=== PATIENT | female | born 1990 | race Caucasian/White ===

== ENCOUNTER 2018-02-07 11:29 | Inpatient (IN) | payer OTHER ==
[~2018-02-07] VITALS: Ht 167.6 cm; Wt 93.0 kg
[2018-02-07] MEDS ORDERED: OXYTOCIN 30U/ 0.9% NaCL 500ML 500 ML IV ONE (11:50)
[2018-02-07] MEDS: LACTATED RINGERS 1,000 ML IV SCH ×2 (11:50→21:28)
[2018-02-07] MEDS ORDERED: OXYTOCIN 30U/ 0.9% NaCL 500ML 0 ML ONE (11:55)
[2018-02-07] MEDS ORDERED: NEWBORN KIT ONE (11:55)
[2018-02-07] MEDS ORDERED: MISOPROSTOL 200 MCG TABLET ONE (11:55)
[2018-02-07] MEDS ORDERED: CALCIUM CARBONATE 500 MG TAB.CHEW PO PRN (12:00)
[2018-02-07] MEDS ORDERED: ONDANSETRON 2MG/ML, 2ML IVPush PRN (12:00)
[2018-02-07] MEDS ORDERED: FENTANYL PF 100 MCG/2ML IVPush PRN (12:00)
[2018-02-07] MEDS ORDERED: FENTANYL PF 100 MCG/2ML IV PRN (12:00)
[2018-02-07] MEDS ORDERED: SODIUM CHLORIDE FLUSH 10ML SYR IVF PRN (12:00)
[2018-02-07 12:20] LABS: BASOPHILS # (AUTO) 0.02 x10^3/uL (0-0.1); BASOPHILS % (AUTO) 0 % (0-1); EOSINOPHILS % (AUTO) 0 % (1-7); LYMPHOCYTES # (AUTO) 1.24 x10^3/uL (1-3.4); LYMPHOCYTES % (AUTO) 10 % (22-44); MD NO; MEAN CORPUSCULAR HEMOGLOBIN 31.3 pg (27.0-34.8); MEAN CORPUSCULAR HGB CONC 33.8 g/dL (32.4-35.8); MEAN CORPUSCULAR VOLUME 92.7 fL (80-100); MEAN PLATELET VOLUME 9.7 fL (7.4-10.4); MONOCYTES % (AUTO) 3 % (2-9); NEUTROPHILS # (AUTO) 10.87 x10^3/uL (1.8-6.8); NEUTROPHILS % (AUTO) 87 % (42-75); PLATELET COUNT 231 x10^3/uL (130-400); RED BLOOD COUNT 4.43 x10^6/uL (3.82-5.3); RED CELL DISTRIBUTION WIDTH 12.9 % (9.6-15.2)
[2018-02-07] MEDS: D5%-LACTATED RINGERS 1,000 ML IV SCH ×2 (12:30→22:00)
[2018-02-07] MEDS ORDERED: ONDANSETRON 2MG/ML, 2ML IV PRN (17:30)
[2018-02-07] MEDS ORDERED: MISOPROSTOL 200 MCG TABLET PR PRN (17:30)
[2018-02-07] MEDS ORDERED: OXYcodone/APAP 5/325MG TABLET PO PRN ×2 (17:30)
[2018-02-07] MEDS ORDERED: LIDOCAINE-MPF 1%, 5ML ONE (19:03)
[2018-02-07] MEDS ORDERED: IBUPROFEN 600 MG TABLET ONE (19:45)
[2018-02-07] MEDS: IBUPROFEN 600 MG TABLET PO PRN (20:00)
[2018-02-07] MEDS ORDERED: OXYTOCIN 30U/ 0.9% NaCL 500ML 500 ML ONE (21:21)
[2018-02-07] MEDS: OXYTOCIN 30U/ 0.9% NaCL 500ML 500 ML IV SCH (22:00)
[2018-02-07 22:10] VITALS: BP 133/85
[2018-02-08 02:15] VITALS: BP 132/89
[2018-02-08] MEDS: IBUPROFEN 600 MG TABLET PO PRN ×3 (02:26→19:11)
[2018-02-08] MEDS: OXYTOCIN 30U/ 0.9% NaCL 500ML 500 ML IV SCH ×2 (03:19→13:19)
[2018-02-08 03:36] LABS: MEAN CORPUSCULAR HEMOGLOBIN 30.6 pg (27.0-34.8); MEAN CORPUSCULAR HGB CONC 33.6 g/dL (32.4-35.8); MEAN CORPUSCULAR VOLUME 91.1 fL (80-100); MEAN PLATELET VOLUME 9.6 fL (7.4-10.4); PLATELET COUNT 233 x10^3/uL (130-400); RED CELL DISTRIBUTION WIDTH 13.2 % (9.6-15.2)
[2018-02-08 03:48] LABS: BASOPHILS # (AUTO) 0.06 x10^3/uL (0-0.1); BASOPHILS % (AUTO) 0 % (0-1); EOSINOPHILS # (AUTO) 0.01 x10^3/uL (0-0.4); EOSINOPHILS % (AUTO) 0 % (1-7); LYMPHOCYTES # (AUTO) 1.63 x10^3/uL (1-3.4); LYMPHOCYTES % (AUTO) 10 % (22-44); MD SCAN; MONOCYTES % (AUTO) 4 % (2-9); NEUTROPHILS # (AUTO) 14.86 x10^3/uL (1.8-6.8); NEUTROPHILS % (AUTO) 87 % (42-75)
[2018-02-08] MEDS: LACTATED RINGERS 1,000 ML IV SCH ×2 (03:50→11:50)
[2018-02-08 05:55] VITALS: BP 122/69
[2018-02-08 09:00] VITALS: BP 125/81
[2018-02-08] MEDS: PRENATAL VIT/IRON/FA 1 EACH TABLET PO SCH (09:00)
[2018-02-08 12:00] VITALS: BP 121/82
[2018-02-08 19:00] VITALS: BP 125/78
[2018-02-08] MEDS: DOCUSATE 100 MG CAPSULE PO PRN (19:11)
[2018-02-09] VITALS: BP 102/58
[2018-02-09] MEDS: IBUPROFEN 600 MG TABLET PO PRN ×2 (02:10→08:54)
[2018-02-09] MEDS: DOCUSATE 100 MG CAPSULE PO PRN (08:54)
[2018-02-09 08:55] VITALS: BP 111/66
[2018-02-09] MEDS: PRENATAL VIT/IRON/FA 1 EACH TABLET PO SCH (09:00)
[2018-02-09] MEDS ORDERED: IBUP-1222 PO (13:38)
== END 2018-02-09 14:00 | disposition home or self-care (01) | DRG 775 ==
LOC: LDIP 11:29 → 2NW 21:41
PROVIDERS: ADMIT Obstetrics & Gynecology; ATTEND Obstetrics & Gynecology
PROC: 10E0XZZ Delivery of Products of Conception, External Approach (ICD-10-PCS; principal; 2018-02-07)
PROC: 0W8NXZZ Division of Female Perineum, External Approach (ICD-10-PCS; 2018-02-07)
PROC: 10907ZC Drainage of Amniotic Fluid, Therapeutic from Products of Conception, Via Natural or Artificial Opening (ICD-10-PCS; 2018-02-07)
DX: O99.52 Diseases of the respiratory system complicating childbirth (principal); J45.909 Unspecified asthma, uncomplicated; O63.9 Long labor, unspecified; Z37.0 Single live birth; Z80.3 Family history of malignant neoplasm of breast; Z3A.39 39 weeks gestation of pregnancy
CPT/HCPCS: 36415; 85025; 86850; 86900; J2590; J7120; J7121

== ENCOUNTER 2018-02-10 17:23 | Inpatient (IN) | payer OTHER ==
[~2018-02-10] VITALS: Ht 167.6 cm; Wt 82.0 kg
[~2018-02-10 17:23] MED LIST: IBUP-1222 PO
[2018-02-10] MEDS ORDERED: SODIUM CHLORIDE 0.9%, 500ML IVBOLUS ONE (18:00)
[2018-02-10 18:23] LABS: INTERNATIONAL NORMALIZED RATIO 0.91 (0.93-1.1); PROTHROMBIN TIME 9.4 Seconds (9.6-11.5)
[2018-02-10 18:24] LABS: MEAN CORPUSCULAR HEMOGLOBIN 31.7 pg (27.0-34.8); MEAN CORPUSCULAR VOLUME 93.2 fL (80-100); MEAN PLATELET VOLUME 8.6 fL (7.4-10.4); PLATELET COUNT 218 x10^3/uL (130-400); RED BLOOD COUNT 2.61 x10^6/uL (3.82-5.3); RED CELL DISTRIBUTION WIDTH 13.3 % (9.6-15.2)
[2018-02-10 18:25] LABS: BASOPHILS # (AUTO) 0.01 x10^3/uL (0-0.1); BASOPHILS % (AUTO) 0 % (0-1); EOSINOPHILS # (AUTO) 0.07 x10^3/uL (0-0.4); EOSINOPHILS % (AUTO) 1 % (1-7); LYMPHOCYTES # (AUTO) 1.24 x10^3/uL (1-3.4); LYMPHOCYTES % (AUTO) 12 % (22-44); MD NO; MONOCYTES # (AUTO) 0.33 x10^3/uL (0.2-0.8); MONOCYTES % (AUTO) 3 % (2-9); NEUTROPHILS # (AUTO) 8.39 x10^3/uL (1.8-6.8); NEUTROPHILS % (AUTO) 84 % (42-75)
[2018-02-10 18:26] LABS: ALANINE AMINOTRANSFERASE 26 U/L (12-78); ALBUMIN 2.6 g/dL (3.4-5.0); ANION GAP 8 mmol/L (5-15); CALCIUM 7.9 mg/dL (8.5-10.1); CHLORIDE 110 mmol/L (98-107); CREATININE 0.65 mg/dL (0.55-1.02)
[2018-02-10 18:29] LABS: ALKALINE PHOSPHATASE 74 U/L (45-117); BILIRUBIN,TOTAL 0.2 mg/dL (0.2-1.0); TOTAL PROTEIN 6.1 g/dL (6.4-8.2)
[2018-02-10 19:49] VITALS: BP 158/86
[2018-02-10] MEDS ORDERED: FENTANYL PF 100 MCG/2ML ONE (20:05)
[2018-02-10] MEDS ORDERED: SUCCINYLCHOLINE 20 MG/ML, 10ML ONE (20:05)
[2018-02-10] MEDS ORDERED: PROPOFOL 10 MG/ML, 20ML ONE (20:05)
[2018-02-10] MEDS ORDERED: LIDOCAINE 1%, 50ML ONE (20:11)
[2018-02-10] MEDS ORDERED: MISOPROSTOL 200 MCG TABLET ONE (20:12)
[2018-02-10] MEDS ORDERED: OXYTOCIN 10 UNITS/ML, 1ML ONE (20:12)
[2018-02-10] MEDS ORDERED: VASOPRESSIN 20 UNIT/ML, 1ML ONE (20:12)
[2018-02-10] MEDS ORDERED: CLINDAMYCIN 150 MG/ML, 6ML ONE (20:12)
[2018-02-10] MEDS ORDERED: SILVER NITRATE STICK TP ONE (20:12)
[2018-02-10] MEDS ORDERED: PROMETHAZINE 25 MG/ML, 1ML IV PRN (20:30)
[2018-02-10] MEDS ORDERED: LABETALOL 5MG/ML, 20ML IV PRN (20:30)
[2018-02-10] MEDS ORDERED: ALBUTEROL SULFATE 2.5 MG/3 ML NPPB PRN (20:30)
[2018-02-10] MEDS ORDERED: ONDANSETRON 2MG/ML, 2ML IVPush PRN (20:30)
[2018-02-10] MEDS ORDERED: EPHEDRINE 50 MG/ML, 1ML IVPush PRN (20:30)
[2018-02-10] MEDS ORDERED: OXYcodone 5 MG/5 ML ORAL.SOL UDC PO PRN (20:30)
[2018-02-10] MEDS ORDERED: ACETAMINOPHEN 325 MG TABLET PO PRN ×3 (20:30→21:30)
[2018-02-10] MEDS ORDERED: FENTANYL PF 100 MCG/2ML IV PRN (20:30)
[2018-02-10] MEDS ORDERED: hydrALAzine 20 MG/ML, 1ML IV PRN (20:30)
[2018-02-10] MEDS ORDERED: METOPROLOL 1 MG/ML, 5ML IV PRN (20:30)
[2018-02-10] MEDS ORDERED: MISOPROSTOL 200 MCG TABLET PR ONE (20:50)
[2018-02-10] MEDS ORDERED: DEXAMETHASONE 4 MG/ML, 1ML ONE (20:55)
[2018-02-10] MEDS ORDERED: ONDANSETRON 2MG/ML, 2ML ONE (20:55)
[2018-02-10] MEDS ORDERED: CEFAZOLIN 1,000 MG ONE ×2 (20:55)
[2018-02-10] MEDS ORDERED: OXYTOCIN 30U/ 0.9% NaCL 500ML 500 ML IV SCH (21:02)
[2018-02-10] MEDS: MEPERIDINE/PF 25MG/0.5ML IVPush PRN ×2 (21:08→21:19)
[2018-02-10] MEDS ORDERED: MEPERIDINE/PF 50 MG/ML ONE (21:13)
[2018-02-10] MEDS ORDERED: OXYcodone 5 MG/5 ML ORAL.SOL UDC ONE (21:13)
[2018-02-10] MEDS ORDERED: OXYcodone/APAP 5/325MG TABLET PO PRN ×2 (21:30)
[2018-02-10] MEDS ORDERED: CARBOPROST TROMETHAMINE 250 MCG/ML, 1ML IM PRN (21:30)
[2018-02-10] MEDS ORDERED: METHYLERGONOVINE 0.2 MG/ML IM PRN (21:30)
[2018-02-10] MEDS ORDERED: ONDANSETRON 2MG/ML, 2ML IV PRN (21:30)
[2018-02-10] MEDS ORDERED: GLYCERIN ADULT SUPP PR PRN (21:30)
[2018-02-10] MEDS ORDERED: IBUPROFEN 600 MG TABLET PO PRN (21:30)
[2018-02-10] MEDS ORDERED: MISOPROSTOL 200 MCG TABLET PR PRN (21:30)
[2018-02-10] MEDS ORDERED: METOCLOPRAMIDE 5 MG/ML, 2ML IV PRN (21:30)
[2018-02-10] MEDS ORDERED: BISACODYL 10 MG SUPP PR PRN (21:30)
[2018-02-10] MEDS ORDERED: DOCUSATE 100 MG CAPSULE PO PRN (21:30)
[2018-02-10] MEDS ORDERED: ONDANSETRON ODT 4 MG PO PRN (22:00)
[2018-02-10 22:05] LABS: BASOPHILS # (AUTO) 0.05 x10^3/uL (0-0.1); BASOPHILS % (AUTO) 0 % (0-1); EOSINOPHILS # (AUTO) 0.05 x10^3/uL (0-0.4); EOSINOPHILS % (AUTO) 1 % (1-7); LYMPHOCYTES # (AUTO) 1.18 x10^3/uL (1-3.4); LYMPHOCYTES % (AUTO) 11 % (22-44); MD NO; MEAN CORPUSCULAR HEMOGLOBIN 31.2 pg (27.0-34.8); MEAN CORPUSCULAR HGB CONC 33.1 g/dL (32.4-35.8); MEAN CORPUSCULAR VOLUME 94.1 fL (80-100); MEAN PLATELET VOLUME 8.4 fL (7.4-10.4); MONOCYTES % (AUTO) 2 % (2-9); NEUTROPHILS % (AUTO) 87 % (42-75); PLATELET COUNT 205 x10^3/uL (130-400); RED BLOOD COUNT 2.46 x10^6/uL (3.82-5.3); RED CELL DISTRIBUTION WIDTH 13.1 % (9.6-15.2)
[2018-02-11 05:17] LABS: MEAN CORPUSCULAR HEMOGLOBIN 31.5 pg (27.0-34.8); MEAN CORPUSCULAR HGB CONC 33.7 g/dL (32.4-35.8); MEAN CORPUSCULAR VOLUME 93.4 fL (80-100); MEAN PLATELET VOLUME 8.2 fL (7.4-10.4); PLATELET COUNT 209 x10^3/uL (130-400); RED BLOOD COUNT 2.29 x10^6/uL (3.82-5.3); RED CELL DISTRIBUTION WIDTH 13.3 % (9.6-15.2)
[2018-02-11 05:49] LABS: BASOPHILS # (AUTO) 0.02 x10^3/uL (0-0.1); BASOPHILS % (AUTO) 0 % (0-1); EOSINOPHILS % (AUTO) 0 % (1-7); LYMPHOCYTES # (AUTO) 1.06 x10^3/uL (1-3.4); LYMPHOCYTES % (AUTO) 9 % (22-44); MD SCAN; MONOCYTES # (AUTO) 0.15 x10^3/uL (0.2-0.8); MONOCYTES % (AUTO) 1 % (2-9); NEUTROPHILS # (AUTO) 10.88 x10^3/uL (1.8-6.8); NEUTROPHILS % (AUTO) 90 % (42-75)
[2018-02-11] MEDS ORDERED: PRENATAL VIT/IRON/FA 1 EACH TABLET PO SCH (09:00)
[2018-02-11] MEDS ORDERED: PREN1TAB10 PO (09:54)
[2018-02-11] MEDS ORDERED: DOCU-131 PO (09:55)
[2018-02-11] MEDS ORDERED: FERR324T18 PO (09:55)
== END 2018-02-11 10:40 | disposition home or self-care (01) | DRG 769 ==
LOC: ED 19:08 → EDIP 19:09 → ED 19:22 → 2NE 21:39
PROVIDERS: ADMIT Obstetrics & Gynecology; ATTEND Obstetrics & Gynecology
PROC: 10D17ZZ Extraction of Products of Conception, Retained, Via Natural or Artificial Opening (ICD-10-PCS; principal; 2018-02-10 20:15)
DX: O72.2 Delayed and secondary postpartum hemorrhage (principal); D62 Acute posthemorrhagic anemia; O90.81 Anemia of the puerperium; O99.52 Diseases of the respiratory system complicating childbirth; O99.53 Diseases of the respiratory system complicating the puerperium; J45.909 Unspecified asthma, uncomplicated
CPT/HCPCS: 36415; 76856; 80053; 85025; 85610; 86850; 86900; 86923; 88305; 96360; 96361; J0690; J1100; J2175; J2405; J2704; J3010; J3490; J0330; J2590; J7040